=== PATIENT | male | born 1990 | race Hispanic/Latino ===

== ENCOUNTER 2018-07-01 21:02 | Emergency (ER) | payer OTHER ==
[2018-07-01 21:38] VITALS: BP 120/74; PULSE 83; RESP 16; TEMP 98.6; O2SAT 97
[2018-07-01] MEDS ORDERED: Tdap Vaccine 0.5 ml Vial (10-64 yrs) IM ONE ×2 (21:55→22:19)
[2018-07-01] MEDS ORDERED: Povidone Iodine Topical 10% Sol ONE (22:01)
--- NOTE | 2018-07-01 22:23 | ED PDOC ---
Upper Extremity Pain/Injury Chief Complaint (Provider): Upper Extremity Problem/Injury History Per: Patient Onset/Duration Of Symptoms: Gradual Current Symptoms Are (Timing): Still Present Additional Complaint(s): Pt. is a 28 yr. 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 Pt. denies any numbness. <Rebekah Argueta - Last Filed: 07/03/18 12:44> <Christie Tran - Last Filed: 07/04/18 14:53> Time Seen by Provider: 07/01/18 21:39 Chief Complaint (Nursing): Upper Extremity Problem/Injury Past Medical History Reviewed: Nursing Documentation, Vital Signs Vital Signs: Last Vital Signs Temp 98.6 F 07/01/18 21:36 Pulse 83 07/01/18 21:36 Resp 16 07/01/18 21:36 BP 120/74 07/01/18 21:36 Pulse Ox 97 07/01/18 21:36 - Medical History PMH: No Chronic Diseases - Surgical History Surgical History: No Surg Hx - Family History Family History: States: No Known Family Hx <Rebekah Argueta - Last Filed: 07/03/18 12:44> Vital Signs: Last Vital Signs Temp 98.6 F 07/01/18 21:36 Pulse 83 07/01/18 21:36 Resp 16 07/01/18 21:36 BP 120/74 07/01/18 21:36 Pulse Ox 97 07/03/18 12:47 <Christie Tran - Last Filed: 07/04/18 14:53> - Allergies Allergies/Adverse Reactions: Allergies Allergy/AdvReac Type Severity Reaction Status Date / Time No Known Allergies Allergy Verified 07/01/18 21:36 Review of Systems Skin: Positive for: Other (laceration) Neurological: Negative for: Numbness <Rebekah Argueta - Last Filed: 07/03/18 12:44> Physical Exam - Reviewed Nursing Documentation Reviewed: Yes Vital Signs Reviewed: Yes - Physical Exam Appears: Positive for: Well Skin: Positive for: Normal Color Extremity: Positive for: Other ((+) 1.25 cm. laceration of the volar aspect of distal phalanx, sensation intact, tendon function intact. ) <Rebekah Argueta - Last Filed: 07/03/18 12:44> - ECG O2 Sat by Pulse Oximetry: 97 (RA) Pulse Ox Interpretation: Normal <Rebekah Argueta - Last Filed: 07/03/18 12:44> Medical Decision Making Medical Decision Making: Td prophylaxis given. Procedure by leydi argueta. Using sterile technique, wound was anesthetized using plain lido. Wound repaired using 5-0 nylon sutures x 6, bacitracin and bulky d/s/d applied. Pt. tolerated well. <Rebekah Argueta - Last Filed: 07/03/18 12:44> Procedures - Laceration/Wound Repair Right Distal Volar Finger Wound's Depth, Shape: superficial, flap Wound Explored: clean Betadine Prep?: Yes Anesthesia: 1% Lidocaine Wound Repaired With: Sutures Suture Size/Type: 5:0, nylon Number of Sutures: 6 Layer Closure?: No Wound Complexity: Simple <Rebekah Argueta - Last Filed: 07/03/18 12:44> Disposition - Patient ED Disposition Is Patient to be Admitted: No - Disposition Disposition: Routine/Home Disposition Time: 22:29 <Rebekah Argueta - Last Filed: 07/03/18 12:44> <Christie Tran - Last Filed: 07/04/18 14:53> - Clinical Impression Clinical Impression: Cut of hand, Finger laceration - Disposition Condition: GOOD Additional Instructions: Keep wound dry and covered x 2 days. wound check 2 days. then clean gently and apply neosporin daily. suture removal in 7-10 days. return sooner if any signs of infection. Instructions: Laceration Repair With Stitches (DC) Forms: [employer] (Mauritanian) Addendum Addendum: 07/04/18 14:53 Reviewed chart and agree with PA assessment and plan. <Christie Tran - Last Filed: 07/04/18 14:53>
== END 2018-07-01 23:01 | disposition home or self-care (01) ==
LOC: H.ER 21:02
DX: S61.312A Laceration without foreign body of right middle finger with damage to nail, initial encounter (principal); W26.8XXA Contact with other sharp object(s), not elsewhere classified, initial encounter; Y92.89 Other specified places as the place of occurrence of the external cause